=== PATIENT | male | born 1955 | race Caucasian/White ===

== ENCOUNTER 2017-09-24 12:13 | Outpatient (CLI) | payer BC ==
[2017-09-24 14:17] LABS: Hemoglobin 15.5 g/dL (14.0-18.0); Mean Corpuscular HGB CONC 34.7 g/dL (32.0-36.0); Mean Corpuscular Volume 89.3 fl (80.0-94.0); Mean Platelet Volume 7.5 fL (7.4-10.4); Platelet Count 208 thou/uL (130-400); RBC Distribution Width 11.6 % (11.5-14.5); White Blood Cell (WBC) Count 8.9 thou/uL (4.8-10.8)
[2017-09-24 14:23] LABS: PTT 35.2 SEC (22.9-36.1); Prothrombin Time 13.3 SEC (12.0-14.7)
[2017-09-24 14:38] LABS: ALT (SGPT) 43 U/L (8-55); AST (SGOT) 26 U/L (5-34); Albumin 4.6 g/dL (3.4-4.8); Alkaline Phosphatase 79 U/L (40-150); Anion Gap 11 mmol/L (10-20); BUN (Urea Nitrogen) 12 mg/dL (8.4-25.7); Bilirubin, Total 0.9 mg/dL (0.2-1.2); Calc. Creatinine Clearance 0 mL/min (70-130); Calcium 9.6 mg/dL (7.8-10.44); Carbon Dioxide 23 mmol/L (23-31); Chloride 105 mmol/L (98-107); Estimated GFR-MDRD 85; Globulin 2.8 g/dL (2.4-3.5); Glucose 100 mg/dL (80-115); Potassium 3.9 mmol/L (3.5-5.1); Protein, Total 7.4 g/dL (5.8-8.1); Sodium 135 mmol/L (136-145)
--- NOTE | 2017-09-26 17:36 | EKG ---
Test Reason : Blood Pressure : / mmHG Vent. Rate : 066 BPM Atrial Rate : 066 BPM P-R Int : 192 ms QRS Dur : 086 ms QT Int : 396 ms P-R-T Axes : 044 017 -13 degrees QTc Int : 415 ms Normal sinus rhythm Possible Inferior infarct , age undetermined Anterior infarct , age undetermined Abnormal ECG No previous ECGs available Confirmed by DR. Vlad CHANDRA ([id number]) on 09/26/2017 5:36:07 PM Referred By: MATTIE Confirmed By:DR. Vlad CHANDRA
== END 2017-09-24 12:14 | disposition home or self-care (01) ==
LOC: LABBT 12:13
PROVIDERS: ATTEND Internal Medicine Cardiovascular Disease
DX: Z01.818 Encounter for other preprocedural examination (principal); R94.39 Abnormal result of other cardiovascular function study
CPT/HCPCS: 80053; 85027; 85610; 85730; 93005; 93010

== ENCOUNTER 2017-09-25 06:38 | Day surgery (SDC) | payer BC ==
[2017-09-24 12:22] VITALS: BMI 33.4
[2017-09-25] MEDS ORDERED: Iopamidol 370 76% 100 ML VIAL ONE (07:24)
[2017-09-25 07:30] LABS: Cardiac Risk 2.8 (Less than 4.5)
[2017-09-25] MEDS ORDERED: Lidocaine 1% (PF) 30 ML VIAL ONE (08:12)
[2017-09-25] MEDS ORDERED: Heparin 10,000 UNITS/1 ML VIAL ONE (08:48)
[2017-09-25] MEDS ORDERED: Nitroglycerin 100MG/250ML BOT 250 ML ONE (08:48)
[2017-09-25] MEDS ORDERED: Fentanyl 250 MCG/5 ML VIAL ONE (08:50)
[2017-09-25] MEDS ORDERED: Midazolam HCl 2 mg/2 ml Vial ONE (08:50)
[2017-09-25] MEDS ORDERED: Verapamil 5 MG/2 ML VIAL ONE (08:50)
--- NOTE | 2017-09-25 11:52 | DIS ---
DATE OF PROCEDURE: 09/25/2017 INDICATION FOR PROCEDURE: This is a 62-year-old patient with history of known coronary artery diseas e who complained of some mild chest discomfort. He had stress testing showed some reversible apical ischemia. He was advised to undergo cardiac catheterization. He was taken to cardiac catheterizatio n lab today where he underwent the procedure. His other diagnoses include hypertension as well as hy perlipidemia. DISCHARGE DIAGNOSES: This is a 62-year-old patient with history of known coronary artery disease who complained of some mild chest discomfort. He had stress testing showed some reversible apical ische reina. He was advised to undergo cardiac catheterization. He was taken to cardiac catheterization lab today where he underwent the procedure. His other diagnoses include hypertension as well as hyperli pidemia. PROCEDURES IN HOSPITAL: Cardiac catheterization, left ventriculogram, and coronary arteriography. DISCHARGE MEDICATIONS: Same as his admission medications. These include irbesartan 150 mg p.o. latosha y, rosuvastatin 10 mg daily, and venlafaxine 75 mg p.o. daily. His followup will be with me in 1 month in the office. He will continue his routine followups with Job Conley. HOSPITAL COURSE: This very pleasant gentleman has a history of known coronary artery disease and und erwent cardiac catheterization approximately 6 years ago and had mild coronary artery disease. He wa s advised to undergo repeat cardiac catheterization as he was found to have an abnormal stress test a nd had been complaining of some chest pressure and also shortness of breath. He was taken to cardiac quality control lab tech where he underwent the procedure today without difficulties or complications. The arteries are pretty much unchanged from what they were 6 years ago. He does have some luminal irregularities noted in the left anterior descending artery and the right coronary artery. The mid right coronary has a 30% stenosis takeoff of the right acute marginal branch, also the proximal left anterior descen ding had 20% stenosis which is unchanged from previous cardiac catheterization. He also had a 50% di stal stenosis in the left anterior descending artery which is relatively unchanged from previous card iac catheterization. There was no significant flow-limiting disease in the circumflex noted. The [facility] ventriculogram shows a normal ejection fraction of 60-65% without any evidence of wall motion abno rmalities. He tolerated the procedure well. There were no difficulties or complications. We did us e a right radial artery approach. If he remains stable, he will be discharged to home in the next 2- 3 hours. I will see him back in the office in about 1 month.
== END 2017-09-25 13:40 | disposition home or self-care (01) ==
LOC: CCL 06:38
PROVIDERS: ATTEND Internal Medicine Cardiovascular Disease
PROC: 4A023N7 Measurement of Cardiac Sampling and Pressure, Left Heart, Percutaneous Approach (ICD-10-PCS; principal; 2017-09-25)
PROC: B2111ZZ Fluoroscopy of Multiple Coronary Arteries using Low Osmolar Contrast (ICD-10-PCS; principal; 2017-09-25)
DX: I25.10 Atherosclerotic heart disease of native coronary artery without angina pectoris (principal); I10 Essential (primary) hypertension; E78.5 Hyperlipidemia, unspecified; Z79.899 Other long term (current) drug therapy
CPT/HCPCS: 80061; 93458; C1769; J1644; J2001; J2250; J3010

== ENCOUNTER 2017-12-27 19:30 | Outpatient (CLI) | payer BC | END 2017-12-27 19:31 | disposition home or self-care (01) | LOC: SLEEPLAB 19:30 | PROVIDERS: ATTEND Internal Medicine Cardiovascular Disease | DX: G47.33 Obstructive sleep apnea (adult) (pediatric) (principal); R53.83 Other fatigue; E66.9 Obesity, unspecified; I25.10 Atherosclerotic heart disease of native coronary artery without angina pectoris; I10 Essential (primary) hypertension | CPT/HCPCS: 95811 ==

== ENCOUNTER 2018-07-03 11:13 | Emergency (ER) | payer BC ==
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
== END 2018-07-03 13:23 | disposition home or self-care (01) ==
LOC: SCSER 11:13
DX: S39.012A Strain of muscle, fascia and tendon of lower back, initial encounter (principal); J45.909 Unspecified asthma, uncomplicated; M43.17 Spondylolisthesis, lumbosacral region; E78.5 Hyperlipidemia, unspecified; I10 Essential (primary) hypertension; V43.52XA Car driver injured in collision with other type car in traffic accident, initial encounter
CPT/HCPCS: 71046; 72100

== ENCOUNTER 2021-02-28 12:07 | Emergency (ER) | payer BC ==
[2021-02-28] MEDS ORDERED: Acetaminophen 500 MG TAB ONE (12:45)
[2021-02-28 21:12] LABS: SARS-CoV-2 PCR by NAA Not Detected (NotDetected)
== END 2021-02-28 13:03 | disposition home or self-care (01) ==
LOC: ERS 12:07
DX: R05 Cough (principal); M79.10 Myalgia, unspecified site; I10 Essential (primary) hypertension; J45.909 Unspecified asthma, uncomplicated; E78.5 Hyperlipidemia, unspecified; E78.00 Pure hypercholesterolemia, unspecified; Z20.822 Contact with and (suspected) exposure to COVID-19
CPT/HCPCS: 71045; U0003; U0005